=== PATIENT | male | born 1965 | race Caucasian/White ===

== ENCOUNTER 2018-01-02 02:00 | Inpatient (IN) | payer OTHER ==
[2018-01-02 02:29] LABS: Hemoglobin 14.4 g/dL (14.0-18.0); Mean Corpuscular HGB CONC 34.2 g/dL (32.0-36.0); Mean Corpuscular Hemoglobin 35.7 pg (27.0-31.0); RBC Distribution Width 12.7 % (11.5-14.5); Red Blood Cell (RBC) Count 4.05 mill/uL (4.70-6.10); White Blood Cell (WBC) Count 3.9 thou/uL (4.8-10.8)
[2018-01-02 02:46] LABS: #Basophils 0.1 thou/uL (0.0-0.2); #Eosinphils 0.1 thou/uL (0.0-0.7); #Lymphocytes 0.8 thou/uL (1.20-3.40); #Monocytes 0.6 thou/uL (0.11-0.59); #Neutrophils 2.5 thou/uL (1.40-6.50); %Basophils 1.4 % (0.0-1.0); %Eosinophils 1.4 % (0.0-10.0); %Lymphocytes 19.5 % (21.0-51.0); %Monocytes 14.6 % (0.0-10.0); %Neutrophils 63.1 % (42.0-75.0); Mean Platelet Volume 9.9 fL (7.4-10.4); Platelet Count 53 thou/uL (130-400)
[2018-01-02 02:49] LABS: ALT (SGPT) 158 U/L (8-55); AST (SGOT) 165 U/L (5-34); Albumin 2.9 g/dL (3.5-5.0); Alkaline Phosphatase 143 U/L (40-150); Anion Gap 9 mmol/L (10-20); BUN (Urea Nitrogen) 18 mg/dL (8.4-25.7); Bilirubin, Total 2.6 mg/dL (0.2-1.2); Calc. Creatinine Clearance 0 mL/min (70-130); Calcium 8.6 mg/dL (7.8-10.44); Carbon Dioxide 17 mmol/L (22-29); Chloride 114 mmol/L (98-107); Estimated GFR-MDRD Greater than 90; Globulin 3.9 g/dL (2.4-3.5); Glucose 145 mg/dL (70-105); Lipase 57 U/L (8-78); Potassium 3.9 mmol/L (3.5-5.1); Protein, Total 6.8 g/dL (6.0-8.3); Sodium 136 mmol/L (136-145)
[2018-01-02 03:29] LABS: Acetaminophen Less than 6.0 mcg/mL (10.0-30.0); Alcohol Less than 10 mg/dL (Less than 10); Salicylate Less than 8.0 mg/dL (15.0-30.0)
[2018-01-02 04:13] LABS: INR-International Normal Ratio 1.5; PTT 38.3 SEC (22.9-36.1); Prothrombin Time 17.8 SEC (12.0-14.7)
[2018-01-02] MEDS ORDERED: Sodium Chloride 0.9% 1,000 ML IV SCH ×2 (05:28→07:00)
[2018-01-02] MEDS ORDERED: Dextrose 50% Abboject 50 ML SYRINGE SLOW IVP SCH (05:45)
[2018-01-02] MEDS ORDERED: Ondansetron ODT 4 MG TAB PO PRN (05:56)
[2018-01-02] MEDS ORDERED: Acetaminophen 325 MG TAB PO PRN (05:56)
[2018-01-02 06:05] VITALS: BMI 24.4
--- NOTE | 2018-01-02 07:07 | HP ---
CHIEF COMPLAINT: Alteration of awareness. HISTORY OF PRESENT ILLNESS: This is a 52-year-old male with past medical history of hepatitis C and esophageal varices, presenting to our ED with alteration of awareness. History was obtained from [facility] staff and electronic medical records. The [facility] is coming [facility] and per [facility] staff, a round 12:00 a.m. the patient was confused and altered. The patient does not know what year we are in . However, the patient is able to state his name and state the environment that he is in, but the pa tient has not been at his baseline; therefore, the patient is being transferred to our hospital to be evaluated. REVIEW OF SYSTEMS: Not able to be obtained because the patient has altered mental status. PAST MEDICAL HISTORY: Hepatitis C. PAST SURGICAL HISTORY: No surgical history. PSYCHIATRIC HISTORY: No previous psychiatric history noted. SOCIAL HISTORY: Denies alcohol use, denies illicit drug use. Denies any smoking history. ALLERGIES: No known drug allergies. CURRENT MEDICATIONS: The patient is not known to be on any medication at this time. PHYSICAL EXAMINATION: VITAL SIGNS: Blood pressure is 164/87, pulse of 99, respiratory rate of 16, temperature of 97.6, O2 saturation of 98. GENERAL: The patient is lying in bed, has handcuffs at the wrist and also at the ankles bilaterally. The patient is confused, able to state his name and states that he knows that he is in the hospital , but does not know what year we are in. HEENT: Normocephalic, atraumatic. Pupils are equally round and reactive to light. Extraocular move ments are intact. There is scleral icterus noted. Conjunctival pallor. Mucous membranes are dry. NECK: No JVD. Trachea is midline. Supple. LUNGS: Clear to auscultation bilaterally. No wheezing, no rales, no rhonchi is appreciated. CARDIOVASCULAR: Positive S1, S2, regular rate and rhythm. No murmurs, no gallops, no rubs appreciat ed. ABDOMEN: Nontender, nondistended. Positive bowel sounds in all quadrants. No peritoneal signs note d. EXTREMITIES: Upper extremity: The patient has 5/5 upper extremity strength with good pulses and the re is handcuffs at the upper extremity and handcuffs at the lower extremity. Good pulses at the lowe r extremity and good strength. NEUROLOGIC: The patient is alert, oriented x2, not able to perform all neurological functions since patient is confused. SKIN: The patient is pale, jaundiced. EKG: A 12-lead EKG shows sinus tachycardia with a rate of 101. IMAGING: CT of the head, no acute intracranial pathology. A chest x-ray shows no cardiopulmonary pr ocess. ED COURSE: The patient received lactulose and normal saline. LABORATORY DATA: WBC is 3.9, hemoglobin is 14.4, hematocrit is 42.2, MCV is 104.0, RDW is 12.7, plat elet count is 53. PT is 17.8, INR is 1.5, PTT is 38.3. Sodium is 136, potassium is 3.9, chloride is 114, carbon dioxide of 17, anion gap of 9, BUN is 18, creatinine is 0.78, GFR is 90, glucose is 145, calcium is 8.6, total bilirubin is 2.6, AST is 165, ALT is 158, alkaline phosphatase is 143, ammonia is 203. Albumin is 2.9, globulin is 3.9. Lipase is 57. Salicylate is less than 8. Acetaminophen is less than 6. Alcohol is less than 10. ASSESSMENT AND PLAN: 1. This is a 52-year-old male with history of hepatitis C, being admitted for hepatic encephalopathy . The patient's ammonia level is elevated at over 200. At this point, the patient has been started on lactulose. We will continue lactulose. We will continue gentle hydration. We will follow up on patient's mental status 2. Deep venous thrombosis and gastrointestinal prophylaxis. The patient platelet count is low and p atient's INR is 1.5. We will do sequential compression devices. For gastrointestinal prophylaxis, w e will do Pepcid. 3. Transaminitis, most likely secondary to hepatic cirrhosis. We will monitor the patient's AST and ALT. 4. Hyperbilirubinemia, likely due to hepatic cirrhosis. We will monitor the patient's bilirubin at this time. This case has been dictated by Dr. Cali Arriaga on patient Harley De León.
--- NOTE | 2018-01-02 08:00 | RAD ---
CHEST 1 VIW: HISTORY: Altered mental status. FINDINGS: No comparison. Cardiac silhouette is magnified by projection. Pulmonary vasculature is unremarkable . Mediastinum is midline. No lobar consolidation or evidence of pneumothorax. school lunch monitor lead s overlie the chest. IMPRESSION: No active cardiopulmonary abnormalities are demonstrated. POS: JESSICA
--- NOTE | 2018-01-02 10:01 | CT ---
PRELIMINARY REPORT/[facility]/EMERGENTY AFTER-HOURS PROCEDURE CT Head Without Intravenous Contrast CLINICAL HISTORY: 52 years old, male; Signs and symptoms; Altered mental status/memory loss; Confusion or disorientatio n; Patient HX: Er 8; AMS; A&ox2, pt will not follow commands TECHNIQUE: Axial computed tomography images of the head/brain without intravenous contrast. COMPARISON: No relevant prior studies available. FINDINGS: No definite acute skull fracture. Included paranasal sinuses are essentially clear. No acute intracranial hemorrhage or mass effect. Ventricle size is normal for age. No definite acute infarct by CT. MRI could be more sensitive/specific for detection, as clinically di rected. IMPRESSION: No acute intracranial bleed or mass effect. No definite acute infarct by CT, see above. Thank you for allowing us to participate in the care of your patient. Dictated and Authenticated by: Nabor Aparicio MD 01/02/2018 3:11 AM Central Time ([place] & [place]) FINAL REPORT CT HEAD NONCONTRAST: DATE: 01/02/2018. TIME: Performed on an emergency basis at 0245 hours. HISTORY: Headache. FINDINGS: Agree with the preliminary report by Dr. Aparicio from [facility]. No acute intracranial abnorma lities are demonstrated on noncontrast CT head. POS: [facility]
--- NOTE | 2018-01-02 14:05 | PDOC.EVN ---
Event Note - Event Note Event Note: Reviewed record and examined patient. VSS. He does not know where he is or why he is here. Had some shaking that looked like chills. Otherwise exam normal. Admitted with hepatic encephalopathy. Has not leukocytosis or fever. CXR clear. Check UA to further rule out infection as source of hepatic encephalopathy. Continue lactulose.
[2018-01-02 21:10] LABS: Bilirubin Negative (Negative); Blood, Urine Trace (Negative); Clarity CLEAR (Clear); Glucose, Urine (Dipstick) Negative (Negative); Leukocyte Negative (Negative); Nitrite Negative (Negative); Protein, Urine (Dipstick) Negative (Neg-Trace); Specific Gravity, Urine 1.015 (1.002-1.036); Urobilinogen > or = 8.0 mg/dL (0.2-1.0)
[2018-01-02 21:12] LABS: Bacteria/HPF None Seen HPF (None Seen); Hyaline Casts/LPF 0-3 HYALINE CAST LPF (0-3 Hyaline); Squamous Epithelial None Seen HPF (0-3); WBC/HPF 0-3 HPF (0-3)
[2018-01-03 05:42] LABS: Anion Gap 9 mmol/L (10-20); BUN (Urea Nitrogen) 13 mg/dL (8.4-25.7); Calc. Creatinine Clearance 133 mL/min (70-130); Carbon Dioxide 19 mmol/L (22-29); Chloride 115 mmol/L (98-107); Estimated GFR-MDRD Greater than 90; Glucose 102 mg/dL (70-105); Potassium 3.8 mmol/L (3.5-5.1); Sodium 139 mmol/L (136-145)
[2018-01-03 06:15] LABS: Eosinophils 4 % (0-10); Hemoglobin 12.7 g/dL (14.0-18.0); Hypochromia SLIGHT = 6-15 cells (100X) (0-5/hpf); Lymphocytes 38 % (21-51); MDiff Complete? YES; Macrocytosis SLIGHT = 6-15 cells (100X) (0-5/hpf); Mean Corpuscular HGB CONC 33.6 g/dL (32.0-36.0); Mean Corpuscular Hemoglobin 35.5 pg (27.0-31.0); Monocytes 6 % (0-10); Neutrophil 52 % (42-75); PLT Morphology Comment Appears Decreased; Platelet Count 54 thou/uL (130-400); RBC Distribution Width 12.6 % (11.5-14.5); Red Blood Cell (RBC) Count 3.59 mill/uL (4.70-6.10); White Blood Cell (WBC) Count 3.2 thou/uL (4.8-10.8)
--- NOTE | 2018-01-03 11:30 | PDOC.PN ---
- Subjective Encounter Start Date: 01/03/18 Encounter Start Time: 11:28 Subjective: awake, alert, oriented X 3 - Objective Resuscitation Status: Resuscitation Status FULL:Full Resuscitation MAR Reviewed: Yes Vital Signs & Weight: Vital Signs (12 hours) Temp Pulse Resp BP BP Pulse Ox 01/03/18 08:00 97.9 F 81 16 123/73 97 01/03/18 04:48 98.4 F 77 12 122/76 97 01/03/18 01:27 98.1 F 92 16 118/75 97 Weight Weight 179 lb 14.4 oz I&O: 01/02/18 01/03/18 01/04/18 06:59 06:59 06:59 Intake Total 370 Balance 370 Result Diagrams: 01/03/18 04:19 01/03/18 04:19 Phys Exam - Physical Examination Neck: no JVD Respiratory: clear to auscultation bilateral Cardiovascular: RRR, no significant murmur Gastrointestinal: soft, non-tender, positive bowel sounds Musculoskeletal: no edema Dx/Plan (1) Hepatic encephalopathy Code(s): K72.90 - HEPATIC FAILURE, UNSPECIFIED WITHOUT COMA Status: Acute (2) Hepatitis C Code(s): B19.20 - UNSPECIFIED VIRAL HEPATITIS C WITHOUT HEPATIC COMA Status: Acute (3) Cirrhosis of liver Code(s): K74.60 - UNSPECIFIED CIRRHOSIS OF LIVER Status: Acute (4) Coagulopathy Status: Acute - Plan cont lactuose, monitor ammonia, obtain med list from [facility] * .
[2018-01-04 07:54] VITALS: BP 128/78; TEMP 97.6
--- NOTE | 2018-01-04 09:12 | DIS ---
TRANSFER OF CARE NOTE City call admission. DATE OF ADMISSION: 01/02/2018 DATE OF DISCHARGE: 01/04/2018 DISPOSITION: Discharged back to [facility]. FINAL DIAGNOSES: 1. Hepatic encephalopathy. 2. Hepatitis C. 3. Cirrhosis secondary to hepatitis C. DISCHARGE MEDICATIONS: Lactulose 20 grams p.o. b.i.d. PENDING AT THE TIME OF DISCHARGE: Nothing. CODE STATUS: FULL CODE. HOSPITAL COURSE: The patient was brought to the emergency room encephalopathic, referred to [facility]. He was found to have ammonia of 203. He was started on lactulose. CT of th e head revealed no acute intracranial process. Other laboratory revealed a mild hyperchloremic acido sis. His bilirubin is 2.6, AST 165, ALT 158. CBC showed a mild decreased white count and decreased platelet count consistent with hypersplenism. The patient has not been treated for hepatitis C. He is on plan therapy when he is released from retirement shortly. With lactulose he has cleared his mary anne ia level dropped rapidly from 203 to 95. He is being discharged back to [facility] on lactulose 20 grams p. o. b.i.d. FOLLOWUP: Follow up per [facility] medical care. CONSULTATIONS: None. PROCEDURES: None.
== END 2018-01-04 11:20 | DRG 443 ==
LOC: ERS 02:00 → T4-B 03:58
PROVIDERS: ADMIT Internal Medicine; ATTEND Internal Medicine
DX: K72.90 Hepatic failure, unspecified without coma (principal); R74.0 Nonspecific elevation of levels of transaminase and lactic acid dehydrogenase [LDH]; B19.20 Unspecified viral hepatitis C without hepatic coma; K74.60 Unspecified cirrhosis of liver
CPT/HCPCS: 36415; 70450; 71045; 80048; 80053; 80307; 81003; 81015; 82140; 83690; 85025; 85610; 85730; 93005; 96360; A4216

== ENCOUNTER → 2018-03-06 | Emergency (ER) | payer OTHER ==
[~2018-03-06] MED LIST: Iopamidol 370 76% 100 ML VIAL ONE; Iopamidol 370 76% 50 ML VIAL FS ONE
[2018-03-06 13:01] LABS: #Lymphocytes 0.9 thou/uL (1.20-3.40); #Monocytes 0.8 thou/uL (0.11-0.59); %Basophils 0.3 % (0.0-1.0); %Eosinophils 0.3 % (0.0-10.0); %Lymphocytes 10.6 % (21.0-51.0); %Monocytes 8.7 % (0.0-10.0); %Neutrophils 80.2 % (42.0-75.0); ALT (SGPT) 106 U/L (8-55); AST (SGOT) 133 U/L (5-34); Albumin 2.4 g/dL (3.5-5.0); Alkaline Phosphatase 132 U/L (40-150); Anion Gap 10 mmol/L (10-20); BUN (Urea Nitrogen) 30 mg/dL (8.4-25.7); Bilirubin, Total 2.4 mg/dL (0.2-1.2); Calc. Creatinine Clearance 0 mL/min (70-130); Calcium 8.1 mg/dL (7.8-10.44); Carbon Dioxide 17 mmol/L (22-29); Chloride 117 mmol/L (98-107); Estimated GFR-MDRD Greater than 90; Globulin 3.6 g/dL (2.4-3.5); Glucose 113 mg/dL (70-105); Hemoglobin 13.6 g/dL (14.0-18.0); Lipase 32 U/L (8-78); Mean Corpuscular HGB CONC 33.1 g/dL (32.0-36.0); Mean Corpuscular Hemoglobin 35.9 pg (27.0-31.0); Mean Platelet Volume 10.1 fL (7.4-10.4); Platelet Count 79 thou/uL (130-400); Potassium 4.7 mmol/L (3.5-5.1); RBC Distribution Width 12.7 % (11.5-14.5); Red Blood Cell (RBC) Count 3.79 mill/uL (4.70-6.10); Sodium 139 mmol/L (136-145); White Blood Cell (WBC) Count 8.7 thou/uL (4.8-10.8)
[2018-03-06 13:02] LABS: MDiff Complete? YES; Macrocytosis SLIGHT = 6-15 cells (100X) (0-5/hpf); PLT Morphology Comment Appears Decreased
--- NOTE | 2018-03-06 15:52 | CT ---
CT BRAIN: DATE: 03/06/2018. PROVIDED CLINICAL HISTORY: Altered mental status. FINDINGS: Comparison 01/02/2018. The ventricular system appears normal in size and morphology. There is no geremias dence for intracranial hemorrhage or mass effect. The extracranial soft tissues and osseous structur es demonstrate an unremarkable CT appearance. IMPRESSION: No evidence for an intracranial hemorrhage or mass effect. POS: [facility]
--- NOTE | 2018-03-06 15:59 | CT ---
CT OF THE ABDOMEN AND PELVISCT OF THE ABDOMEN AND PELVIS WITH IV CONTRAST: DATE: 03/06/2018. PROVIDED CLINICAL HISTORY: Abdominal distension. FINDINGS: The visualized lung bases are free of significant opacity. There is a peripheral nodular contour to the liver compatible with changes of cirrhosis. There is sp lenomegaly and splenic varices noted compatible with portal hypertension. Paraesophageal varices are also noted. There is short segment intussusception present at the duodenal-jejunal junction. There is no evidenc e for bowel obstruction. There is mild free intraperitoneal fluid present. The solid abdominal organs demonstrate an otherwise unremarkable CT appearance. There is no evidence for pneumoperitoneum. No evidence for regional lymph node enlargement. There is conspicuous disten tion of the urinary bladder. The osseous structures demonstrate no concerning lytic or blastic lesio ns. IMPRESSION: 1. Findings of hepatic cirrhosis and portal hypertension including paraesophageal varices. 2. Short segment intussusception of the duodenal jejunal junction. 3. Conspicuous distention of the urinary bladder. POS: [facility]ESS[facility]
[2018-03-06 18:12] LABS: Lactic Acid 1.7 mmol/L (0.5-2.2)
--- NOTE | 2018-03-09 15:15 | EKG ---
Test Reason : Blood Pressure : / mmHG Vent. Rate : 091 BPM Atrial Rate : 091 BPM P-R Int : 142 ms QRS Dur : 076 ms QT Int : 368 ms P-R-T Axes : 049 037 061 degrees QTc Int : 452 ms Normal sinus rhythm with sinus arrhythmia Normal ECG Confirmed by POLINA SOARES DO ([id number]), fan mail editor JULES RYAN ([id number]) on 03/09/2018 3:15:14 PM Referred By: Confirmed By:POLINA SOARES DO
== END ==
LOC: ERS 11:55
DX: K72.90 Hepatic failure, unspecified without coma (principal); K56.1 Intussusception
CPT/HCPCS: 36415; 70450; 74177; 80053; 82140; 83605; 83690; 85025; 86850; 86900; 86901; 93005; 96360; 96361

== ENCOUNTER 2018-09-20 10:22 | Inpatient (IN) | payer OTHER ==
--- NOTE | 2018-09-20 10:58 | CT ---
CT HEAD WITHOUT IV CONTRAST COMPARISON: 03/06/2018 HISTORY: Altered mental status TECHNIQUE: Axial CT imaging at 5 mm intervals from vertex through skull base without contrast FINDINGS: There is no evidence of an acute infarction, hemorrhage, mass effect, or midline shift. The ventricul ar system is normal in size, shape, and position. Visualized paranasal sinuses are clear. Osseous structures appear intact. There has been no interval change when compared to the prior exam. IMPRESSION: 1. No acute intracranial abnormality demonstrated.
[2018-09-20 11:13] LABS: Hemoglobin 14.8 g/dL (14.0-18.0); Mean Corpuscular HGB CONC 33.8 g/dL (32.0-36.0); Mean Corpuscular Hemoglobin 36.5 pg (27.0-31.0); RBC Distribution Width 13.3 % (11.5-14.5); Red Blood Cell (RBC) Count 4.06 mill/uL (4.70-6.10)
[2018-09-20 11:18] LABS: Eosinophils 2 % (0-10); Lymphocytes 19 % (21-51); MDiff Complete? YES; Macrocytosis MODERATE=16-30 cells (100X) (0-5/hpf); Monocytes 9 % (0-10); Neutrophil 70 % (42-75); Platelet Count 42 thou/uL (130-400); Platelet Morphology Comment Appears Decreased
[2018-09-20 11:21] LABS: ALT (SGPT) 89 U/L (8-55); AST (SGOT) 142 U/L (5-34); Acetaminophen Less than 6.0 mcg/mL (10.0-30.0); Albumin 2.4 g/dL (3.5-5.0); Alcohol Less than 10 mg/dL (Less than 10); Alkaline Phosphatase 177 U/L (40-150); Anion Gap 10 mmol/L (10-20); BUN (Urea Nitrogen) 25 mg/dL (8.4-25.7); Bilirubin, Total 3.1 mg/dL (0.2-1.2); CK (CPK) 83 U/L (30-200); Calc. Creatinine Clearance 0 mL/min (70-130); Calcium 8.6 mg/dL (7.8-10.44); Carbon Dioxide 19 mmol/L (22-29); Chloride 111 mmol/L (98-107); Estimated GFR-MDRD Greater than 90; Globulin 4.3 g/dL (2.4-3.5); Glucose 102 mg/dL (70-105); Lipase 54 U/L (8-78); Potassium 4.2 mmol/L (3.5-5.1); Protein, Total 6.7 g/dL (6.0-8.3); Salicylate Less than 8.0 mg/dL (15.0-30.0); Sodium 136 mmol/L (136-145)
[2018-09-20] MEDS ORDERED: Sodium Chloride 0.65% Nasal 44 ML BOT EA NARE PRN (13:38)
[2018-09-20] MEDS ORDERED: Ondansetron PF 4 MG/2 ML Vial IVP PRN (13:38)
[2018-09-20] MEDS ORDERED: Benzonatate 100 MG CAP PO PRN (13:38)
[2018-09-20] MEDS ORDERED: Diabetic Tussin 200 MG/10 ML UDCUP PO PRN (13:38)
[2018-09-20] MEDS ORDERED: Bisacodyl 5 MG TAB PO PRN ×2 (13:38)
[2018-09-20] MEDS ORDERED: Senokot S 8.6-50 MG TAB PO PRN ×2 (13:38)
--- NOTE | 2018-09-20 15:09 | ULT ---
RIGHT UPPER QUADRANT ULTRASOUND: Date: 09/20/18 HISTORY: Cirrhosis. Evaluate for ascites. COMPARISON: None. TECHNIQUE: Limited evaluation due to bowel gas. FINDINGS: Visualized hepatic parenchyma does not demonstrate any obvious intrahepatic masses or intrahepatic bi liary dilatation. No definite evidence of perihepatic fluid. Right hepatic lobe measures 12.0 cm. Echogenic focus in the lumen of the gallbladder may represent a gallstone. Gallbladder wall does not appear to be thickened. No pericholecystic fluid. Negative Shelby's sign is reported. Evaluation of t he gallbladder fundus is limited. Right kidney has a normal cortical echotexture. No hydronephrosis. Right kidney measures 9.4 x 5.4 x 6.6 cm. Suboptimal evaluation of common bile duct. Main portal vein appears to be patent. Suboptimal evaluation of pancreas. Targeted imaging of all four quadrants of the abdomen, including the perihepatic region, do not demon strate any evidence of ascites. IMPRESSION: 1. Limited evaluation of the liver. No definite evidence of cirrhotic change. Correlation made with CT abdomen/pelvis from 03/06/18 does demonstrate changes secondary to cirrhosis. 2. No evidence of significant perihepatic or intra-abdominal free fluid. POS: [facility]
--- NOTE | 2018-09-20 16:25 | HP ---
CHIEF COMPLAINT: Altered mental status. HISTORY OF PRESENTING ILLNESS: Mr. De León is a 52-year-old male with known history of hepatic cirrhosis and hep C, who was brought in from [facility] for altered mental status. History is mainly obtained by discussion with the ER physician and chart review. The patient is altered and is not able to provide any history. According to the EMS, the patient arrived to [facility] today at approximately 9:00 a.m. and guards reported that the patient was altered in line and was dressed backwards and was unable to follow any commands. It is reported that the patient is not very compliant with his medications including lactulose that he is supposed to take to prevent hepatic encephalopathy. He was brought into the emergency room. In the ER, he was hemodynamically stable with a blood pressure of 142/79, saturating 99% on room air. He was found to be somewhat disheveled. He was easy to wake up and follows simple commands, but was not oriented except for self. His initial workup included a 12-lead EKG, which shows sinus bradycardia at 55 beats per minute and a head CT, which was unremarkable for any acute changes. His blood work showed chronic thrombocytopenia with platelet count of 42 and his serum chemistries showed ammonia level of 137. He had stable hyperbilirubinemia and elevated liver enzymes, which are about the same level as his last visit 6 months ago. He was given lactulose in the emergency room and that resulted in a big bowel movement and since then he has been waking up more. He is now being admitted to the hospital for hepatic encephalopathy. PAST MEDICAL HISTORY: 1. Hepatitis C with resultant liver cirrhosis. 2. Medication noncompliance. PAST SURGICAL HISTORY: No surgical history as per the EMR. PSYCHIATRIC HISTORY: No anxiety. No depression. SOCIAL HISTORY: He denies alcohol, drug, or tobacco abuse. FAMILY HISTORY: Unable to obtain. Nothing recorded in the EMR. The patient is very somnolent and altered to provide any family history. ALLERGIES: NO KNOWN MEDICATION ALLERGIES. CURRENT MEDICATIONS: Unknown. It seems like the patient was on lactulose, but he has been noncompliant with this. Other medication listed as follows in the ER records: 1. Lasix 40 mg daily. 2. Omeprazole 20 mg daily. 3. Propranolol 10 mg daily. REVIEW OF SYSTEMS: Limited review of systems. The patient denies any pain or discomfort, but he is quite somnolent to answer most of my questions. LABORATORY DATA: CBC shows hemoglobin 14.8, WBCs 5, platelet count of 42. Serum chemistries show chloride 111, bicarb 19, BUN 25, creatinine 0.69, total bilirubin 3.1, AST 142, ALT 89, alkaline phosphatase 177. Ammonia is 137. Creatine kinase, troponin, and lipase are within normal limits. His salicylate, acetaminophen, and plasma alcohol level are unremarkable and negligible. PHYSICAL EXAMINATION: VITALS SIGNS: Upon presentation in the ER, blood pressure 156/95, pulse of 61, respirations 14, temperature 98.3, saturating 100% on room air. GENERAL: He appears disheveled and ill kempt, but in no acute distress. He is obviously jaundiced. He is awake when woken up and is oriented to self. HEENT: Scleral icterus is noticed. Mucous membrane is slightly dry. No oropharyngeal exudate or erythema. Head is normocephalic and atraumatic. Pupils are equal and reactive to light and accommodation. Extraocular movement intact. NECK: Supple without any lymphadenopathy, JVD, or bruit. CHEST: Clear to auscultation without any wheezing, rales, or rhonchi. Rate and rhythm are regular without any murmurs, rubs, or gallops. ABDOMEN: Nondistended, nontender. No guarding, rebound, or rigidity. EXTREMITIES: Free of any cyanosis. He has trace edema in bilateral lower extremities. SKIN: Free of any rashes or bruises. Feels warm and dry to touch. PSYCHIATRIC: Normal affect. IMPRESSION AND PLAN: 1. Hepatic encephalopathy. The patient's ammonia level is elevated. Again, this is due to lactulose noncompliance. We will treat him with lactulose 3 times a day. Titrate to 2-3 soft stools per day and recheck ammonia levels in the morning. Avoid any narcotic or sedative medications. He is otherwise hemodynamically stable. We will hold his diuretics for now as he clinically appears somewhat dry. Avoid any intravenous fluids given his cirrhosis and easy chances of ascites. We will give him a short course of antibiotics given history of cirrhosis for spontaneous bacterial peritonitis prophylaxis and obtain an abdominal ultrasound to rule out ascites or obstructive jaundice. 2. History of hepatitis C and cirrhosis. Resume home medications when he is ready to be discharged. 3. Chronic thrombocytopenia. Avoid any pharmacological deep venous thrombosis prophylaxis. He is at baseline. This is secondary to liver cirrhosis. He will be monitored. No overt bleeding at this time. 4. Transaminitis. This is once again secondary to hepatic cirrhosis. This is almost similar to what he had a few months ago without any severe acute worsening. Abdominal ultrasound will be done. DISPOSITION: Mr. De León is currently being admitted to the hospital for altered mental status and for hepatic encephalopathy. Estimated length of stay at this time is at least 2 to 3 midnights. Further management will depend upon his clinical course. He is hemodynamically stable and will be admitted to medical floor. Job ID: [id number]
[2018-09-20 16:39] VITALS: BMI 25.6
[2018-09-20] MEDS: cefTRIAXone\\ROCEPHIN 1 GM in Sodium Chloride 0.9% 100 ML IVPB SCH (16:49)
[2018-09-21 03:56] LABS: ALT (SGPT) 78 U/L (8-55); AST (SGOT) 122 U/L (5-34); Albumin 2.1 g/dL (3.5-5.0); Alkaline Phosphatase 170 U/L (40-150); Anion Gap 7 mmol/L (10-20); BUN (Urea Nitrogen) 27 mg/dL (8.4-25.7); Bilirubin, Total 2.4 mg/dL (0.2-1.2); Calc. Creatinine Clearance 124 mL/min (70-130); Calcium 8.4 mg/dL (7.8-10.44); Carbon Dioxide 22 mmol/L (22-29); Chloride 114 mmol/L (98-107); Estimated GFR-MDRD Greater than 90; Glucose 108 mg/dL (70-105); Potassium 4.1 mmol/L (3.5-5.1); Sodium 139 mmol/L (136-145)
[2018-09-21 04:13] LABS: Band 2 % (5-11); Eosinophils 1 % (0-10); Hemoglobin 12.8 g/dL (14.0-18.0); Lymphocytes 29 % (21-51); MDiff Complete? YES; Macrocytosis SLIGHT = 6-15 cells (100X) (0-5/hpf); Mean Corpuscular HGB CONC 33.7 g/dL (32.0-36.0); Mean Corpuscular Hemoglobin 36.4 pg (27.0-31.0); Mean Platelet Volume 11.3 fL (7.4-10.4); Monocytes 16 % (0-10); Myelocyte 1 % (0-0); Neutrophil 51 % (42-75); Platelet Count 51 thou/uL (130-400); Platelet Morphology Comment Appears Decreased; RBC Distribution Width 13.2 % (11.5-14.5); White Blood Cell (WBC) Count 4.2 thou/uL (4.8-10.8)
[2018-09-21] MEDS: Pantoprazole 40 MG VIAL IVP SCH (08:43)
[2018-09-21] MEDS: cefTRIAXone\\ROCEPHIN 1 GM in Sodium Chloride 0.9% 100 ML IVPB SCH (13:00)
--- NOTE | 2018-09-21 14:38 | PDOC.PN ---
- Subjective Encounter Start Date: 09/21/18 Encounter Start Time: 14:35 Subjective: f/u for metabolic encephalopathy due to hepatic cirrhosis and -: elevated ammonia. Received Lactulose and mentally clearer today. - Objective MAR Reviewed: Yes Vital Signs & Weight: Vital Signs (12 hours) Temp Pulse Resp BP Pulse Ox 09/21/18 11:37 97.8 F 65 17 165/87 H 99 09/21/18 08:00 99 09/21/18 07:18 97.5 F L 65 16 116/59 L 99 09/21/18 04:00 97.6 F 64 16 139/83 99 Weight Weight 158 lb 11.725 oz I&O: 09/20/18 09/21/18 09/22/18 06:59 06:59 06:59 Intake Total 360 640 Balance 360 640 Result Diagrams: 09/21/18 03:30 09/21/18 03:30 Additional Labs: Laboratory Tests 09/20/18 09/20/18 09/20/18 10:46 10:46 10:46 Plt Count 42 L Total Bilirubin 3.1 H AST 142 H ALT 89 H Alkaline Phosphatase 177 H Ammonia 137 H Albumin 2.4 L Lipase 54 09/21/18 09/21/18 03:30 03:30 Plt Count Total Bilirubin 2.4 H AST 122 H ALT 78 H Alkaline Phosphatase 170 H Ammonia 114 H Albumin 2.1 L Lipase Radiology Reviewed by me: Yes (ABD sono - no obstructive process noted) Phys Exam - Physical Examination Constitutional: NAD HEENT: PERRLA, sclera anicteric, oral pharynx no lesions Neck: no nodes, no JVD, supple, full ROM Respiratory: no wheezing, no rales, no rhonchi, clear to auscultation bilateral S1, S2 Cardiovascular: RRR, no significant murmur, no rub, gallop Gastrointestinal: soft, non-tender, no distention, positive bowel sounds Musculoskeletal: no edema, pulses present Neurological: normal sensation, moves all 4 limbs Psychiatric: A&O x 3 Skin: normal turgor, cap refill <2 seconds Dx/Plan (1) Hepatic encephalopathy Code(s): K72.90 - HEPATIC FAILURE, UNSPECIFIED WITHOUT COMA Status: Acute Comment: Secondary to elevated ammonia level, continue Lactulose, monitor mental status (2) Cirrhosis of liver Code(s): K74.60 - UNSPECIFIED CIRRHOSIS OF LIVER Status: Chronic Comment: Chronic, stable, continue supportive mgmt, continue Rocephin another 24h (3) Coagulopathy Status: Chronic Comment: Secondary to hepatic cirrhosis, no active bleeding (4) Hepatitis C Code(s): B19.20 - UNSPECIFIED VIRAL HEPATITIS C WITHOUT HEPATIC COMA Status: Chronic Qualifiers: Viral hepatitis chronicity: chronic (5) Hyperammonemia Code(s): E72.20 - DISORDER OF UREA CYCLE METABOLISM, UNSPECIFIED Status: Acute Comment: Improved, continue Lactulose, serial monitoring - Plan 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
[2018-09-22 06:56] LABS: Phosphorus 3.8 mg/dL (2.3-4.7)
[2018-09-22 06:58] LABS: ALT (SGPT) 78 U/L (8-55); AST (SGOT) 118 U/L (5-34); Alkaline Phosphatase 178 U/L (40-150); Anion Gap 8 mmol/L (10-20); BUN (Urea Nitrogen) 24 mg/dL (8.4-25.7); Bilirubin, Total 1.8 mg/dL (0.2-1.2); Calc. Creatinine Clearance 131 mL/min (70-130); Carbon Dioxide 21 mmol/L (22-29); Chloride 114 mmol/L (98-107); Estimated GFR-MDRD Greater than 90; Globulin 3.8 g/dL (2.4-3.5); Glucose 120 mg/dL (70-105); Magnesium 1.8 mg/dL (1.6-2.6); Potassium 3.9 mmol/L (3.5-5.1); Protein, Total 5.8 g/dL (6.0-8.3); Sodium 139 mmol/L (136-145)
[2018-09-22 07:22] VITALS: TEMP 97.5
[2018-09-22] MEDS: Pantoprazole 40 MG VIAL IVP SCH (08:19)
[2018-09-22 09:26] LABS: Band 3 % (5-11); Eosinophils 2 % (0-10); Hemoglobin 12.6 g/dL (14.0-18.0); Lymphocytes 31 % (21-51); MDiff Complete? YES; Macrocytosis SLIGHT = 6-15 cells (100X) (0-5/hpf); Mean Corpuscular HGB CONC 33.5 g/dL (32.0-36.0); Mean Corpuscular Hemoglobin 36.4 pg (27.0-31.0); Mean Platelet Volume 12.1 fL (7.4-10.4); Monocytes 9 % (0-10); Neutrophil 55 % (42-75); Platelet Count 45 thou/uL (130-400); Platelet Morphology Comment Appears Decreased; Polychromasia SLIGHT = 2-3 cells (100X) (0-2/hpf); RBC Distribution Width 13.4 % (11.5-14.5); Red Blood Cell (RBC) Count 3.46 mill/uL (4.70-6.10); White Blood Cell (WBC) Count 3.4 thou/uL (4.8-10.8)
[2018-09-22 12:28] VITALS: BP 147/82
--- NOTE | 2018-09-23 01:04 | DIS ---
DATE OF ADMISSION: 09/20/2018 DATE OF DISCHARGE: 09/22/2018 DISCHARGE DIAGNOSES: 1. Hepatic encephalopathy, improved. 2. Cirrhosis of the liver, chronic. 3. Coagulopathy secondary to #2, stable. 4. Chronic hepatitis C with cirrhosis. 5. Hyperammonemia, improved. CONSULTATIONS: None. PERTINENT LAB AND X-RAY FINDINGS: Total bilirubin ranged between 1.8 to 3.1. AST ranged between 118 to 142. ALT ranged between 78 to 89. Alkaline phosphatase ranged between 170 to 178. Ammonia level ranged between 114 to 137. Lipase 54. CBC showed a hemoglobin ranged between 12.6 to 14.8, MCV 109, platelet count ranged between 42 to 51. Acetaminophen, plasma alcohol level and salicylate level negative, 09/20/2018. CT of the brain without contrast dated 09/20/2018, showed no acute intracranial process. Abdominal ultrasound dated 09/20/2018, showed no acute process. HOSPITAL COURSE: The patient was initially admitted to the medical floor after presenting with altered mental status in the context of chronic hepatitis C with hepatic cirrhosis. The patient was noted with elevated ammonia level, placed on lactulose q.i.d. and monitored for clinical response. The patient rapidly clinically improved in regard to mental status with institution of lactulose. The patient returned to baseline mental status levels within 24 hours after admission. The patient received general supportive management including Rocephin and Protonix and exhibited no evidence of infectious process. The patient was advanced to regular diet, tolerating without difficulty and overall remained clinically stable with stable vital signs. I have examined the patient at the time of discharge and discussed followup instructions. The patient verbalized understanding and agreement ready for discharge on 09/22/2018. DISCHARGE MEDICATIONS: Lactulose 20 g p.o. b.i.d. FOLLOWUP: The patient may follow up with the [place] [facility] after discharge. CONDITION ON DISCHARGE: Fair. ACTIVITY: Ad-ira. DIET: Regular. CODE STATUS: Full. DISPOSITION: Discharged to [facility], 09/22/2018. Job ID: [id number]
== END 2018-09-22 14:22 | DRG 442 ==
LOC: ERS 10:22 → T4-B 16:24
PROVIDERS: ADMIT Internal Medicine; ATTEND Internal Medicine
DX: K72.00 Acute and subacute hepatic failure without coma (principal); D68.4 Acquired coagulation factor deficiency; E72.20 Disorder of urea cycle metabolism, unspecified; D69.6 Thrombocytopenia, unspecified; B18.2 Chronic viral hepatitis C; K74.60 Unspecified cirrhosis of liver; Z79.899 Other long term (current) drug therapy; Z91.14 Patient's other noncompliance with medication regimen
CPT/HCPCS: 36415; 70450; 76705; 80048; 80053; 80076; 80307; 82140; 82550; 83690; 83735; 84100; 84484; 85007; 85025; 85027; 93005; 96361; 96365; C9113; J0696; J3411; J3490

== ENCOUNTER 2018-10-10 20:56 | Emergency (ER) | payer OTHER ==
--- NOTE | 2018-10-10 22:20 | CT ---
Exam: CT brain PROVIDED CLINICAL HISTORY: Altered mental status COMPARISON: 09/20/2018 FINDINGS: The ventricular system is normal in size and morphology. No evidence for intracranial hemorrhage or mass effect. The extracranial soft tissues and osseous structures demonstrate no evidence for an acute abnormality. IMPRESSION: No evidence for intracranial hemorrhage or mass effect.
[2018-10-10 22:42] LABS: Hemoglobin 14.7 g/dL (14.0-18.0); Mean Corpuscular HGB CONC 31.8 g/dL (32.0-36.0); Mean Corpuscular Hemoglobin 34.7 pg (27.0-31.0); Mean Platelet Volume 9.9 fL (7.4-10.4); Platelet Count 47 thou/uL (130-400); Red Blood Cell (RBC) Count 4.23 mill/uL (4.70-6.10); White Blood Cell (WBC) Count 5.7 thou/uL (4.8-10.8)
[2018-10-10 22:58] LABS: Band 1 % (5-11); Lymphocytes 22 % (21-51); MDiff Complete? YES; Macrocytosis SLIGHT = 6-15 cells (100X) (0-5/hpf); Monocytes 4 % (0-10); Neutrophil 73 % (42-75); Platelet Morphology Comment Appears Decreased
[2018-10-10 23:22] LABS: Bacteria/HPF None Seen HPF (None Seen); Bilirubin Negative (Negative); Blood, Urine Trace (Negative); Calcium Oxalate Crystals 1+ HPF (None Seen); Clarity Clear (Clear); Glucose, Urine (Dipstick) Normal (Negative); Leukocyte Negative Leu/uL (Negative); Mucous/LPF 2+ LPF (<2+); Nitrite Negative (Negative); Protein, Urine (Dipstick) 30 mg/dL (Neg-Trace); RBC/HPF 0-3 HPF (0-3); Sperm/HPF Rare HPF (None Seen); Squamous Epithelial 0-3 HPF (0-3); Urobilinogen 3 mg/dL (Less than 2); WBC/HPF 0-3 HPF (0-3)
[2018-10-10 23:25] LABS: Amphetamine Not Detected (NotDetected); Barbiturates Screen Not Detected (NotDetected); Benzodiazepine Screen Not Detected (NotDetected); Cocaine Metabolite Screen Not Detected (NotDetected); Medtox Reader # READER 4; Methadone Not Detected (NotDetected); Methamphetamine Not Detected (NotDetected); Opiate Screen Not Detected (NotDetected); Oxycodone Screen Not Detected (NotDetected); Phencyclidine (PCP) Not Detected (NotDetected); THC/Cannabinoid Screen Not Detected (NotDetected); Tricyclic Screen Not Detected (NotDetected)
[2018-10-10 23:26] LABS: Medtox Control Line Valid? VALID (VALID)
[2018-10-11 00:06] LABS: Albumin 2.4 g/dL (3.5-5.0)
[2018-10-11 00:07] LABS: Calcium 8.6 mg/dL (7.8-10.44); Chloride 115 mmol/L (98-107); Potassium 3.8 mmol/L (3.5-5.1); Sodium 140 mmol/L (136-145)
[2018-10-11 00:08] LABS: Glucose 101 mg/dL (70-105)
[2018-10-11 00:09] LABS: Protein, Total 6.4 g/dL (6.0-8.3)
[2018-10-11 00:10] LABS: Anion Gap 12 mmol/L (10-20); Bilirubin, Total 3.6 mg/dL (0.2-1.2); Carbon Dioxide 17 mmol/L (22-29)
[2018-10-11 00:11] LABS: Alcohol Less than 10 mg/dL (Less than 10); Alkaline Phosphatase 191 U/L (40-150)
[2018-10-11 00:12] LABS: Calc. Creatinine Clearance 0 mL/min (70-130); Estimated GFR-MDRD Greater than 90
[2018-10-11 00:13] LABS: AST (SGOT) 134 U/L (5-34); BUN (Urea Nitrogen) 19 mg/dL (8.4-25.7)
[2018-10-11 00:14] LABS: Salicylate Less than 8.0 mg/dL (15.0-30.0)
[2018-10-11 00:15] LABS: ALT (SGPT) 86 U/L (8-55); Acetaminophen Less than 6.0 mcg/mL (10.0-30.0); CK (CPK) 180 U/L (30-200)
--- NOTE | 2018-10-15 13:24 | EKG ---
Test Reason : Blood Pressure : / mmHG Vent. Rate : 055 BPM Atrial Rate : 055 BPM P-R Int : 156 ms QRS Dur : 080 ms QT Int : 438 ms P-R-T Axes : 094 025 056 degrees QTc Int : 419 ms Sinus bradycardia Otherwise normal ECG Confirmed by QUEENIE DILL MD ([id number]), art editor BENNY MONAHAN ([id number]) on 10/15/2018 1:24:33 PM Referred By: Confirmed By:QUEENIE DILL MD
== END 2018-10-11 02:06 | disposition home or self-care (01) ==
LOC: EEVIPCON 20:56 → ERS 20:56
DX: B19.20 Unspecified viral hepatitis C without hepatic coma (principal); Z91.14 Patient's other noncompliance with medication regimen; Z79.899 Other long term (current) drug therapy
CPT/HCPCS: 36415; 51701; 70450; 80053; 80306; 80307; 81003; 81015; 82140; 82550; 83690; 84443; 85025; 93005